=== PATIENT | male | born 1975 | race Caucasian/White ===

== ENCOUNTER → 2018-06-14 07:55 | Outpatient (CLI) | payer BC, SELFPAY ==
[2018-06-14 09:33] LABS: Add Manual Diff / Slide Review NO; Basophils Percent Auto 0.9 % (0-2); Eosinophils Percent Auto 3.3 % (2-4); Hematocrit 39.8 % (41-53); Hemoglobin 13.5 g/dL (13.5-17.5); Lymphocytes Percent Auto 23.3 % (25-40); Mean Corpuscular HGB Conc 33.8 % (30-36); Mean Corpuscular Hemoglobin 26.7 PG (26-34); Monocytes Percent Auto 9.2 % (3-14); Neutrophils Absolute Auto 4500 /uL (3000-5900); Neutrophils Percent Auto 63.3 % (50-75); Platelet Count 273 X10^3/uL (150-400); Red Blood Cell Count 5.04 X10^6/uL (4.5-5.9); Red Cell Distribution Width 12.5 % (11.6-14.8); White Blood Cell Count 7.1 X10^3/uL (4.5-11.0)
[2018-06-14 10:05] LABS: Alanine Aminotransferase 29 IU/L (21-72); Albumin 4.2 g/dL (3.5-5.0); Albumin Globulin Ratio 1.3 (1.0-2.8); Alkaline Phosphatase 92 U/L (38-126); Aspartate Aminotransferase 25 IU/L (17-59); BUN Creatinine Ratio 18.9 (6-22); Bilirubin Total 0.5 mg/dL (0.2-1.3); Blood Urea Nitrogen 17 mg/dL (9-20); Calcium 9.3 mg/dL (8.4-10.2); Carbon Dioxide 31 mmol/L (22-32); Chloride 101 mmol/L (98-107); Cholesterol 158 mg/dL (140-199); Estimated Glomerular Filt Rate > 60.0 mL/min (>60); Globulin 3.3 g/dL (1.7-4.1); Glucose 109 mg/dL (70-100); HDL Cholesterol 33 mg/dL (40-60); HEMOLYSIS < 15 (0-50); LDL Cholesterol Calculated 102 mg/dL (<100); Potassium 4.2 mmol/L (3.4-5.1); Sodium 140 mmol/L (137-145); Total Protein 7.5 g/dL (6.3-8.2); Triglycerides 114 mg/dL (35-150)
[2018-06-14 10:54] LABS: TSH w/ Reflex to FT4 1.55 uIU/mL (0.47-4.68)
== END ==
PROVIDERS: Family Provider Family Medicine; PCP Family Medicine; Visit Provider Family Medicine
DX: Z00.00 Encounter for general adult medical examination without abnormal findings (principal)
CPT/HCPCS: 36415; 80053; 80061; 84443; 85025

== ENCOUNTER 2019-01-12 15:05 | Emergency (ER) | payer BC, SELFPAY ==
[2019-01-12 15:10] VITALS: BP 164/91; PULSE 73; RESP 18; TEMP 37.2; O2SAT 96; BMI 46.2
[2019-01-12 15:24] VITALS: BP 164/91; PULSE 180; RESP 18; TEMP 37.2; O2SAT 96; BMI 46.2
[2019-01-12 15:54] LABS: Add Manual Diff / Slide Review NO; Basophils Absolute Auto 100 /uL (0-100); Basophils Percent Auto 1.2 % (0-2); Eosinophils Absolute Auto 200 /uL (0-450); Eosinophils Percent Auto 2.7 % (2-4); Hematocrit 45.6 % (41-53); Hemoglobin 14.9 g/dL (13.5-17.5); Lymphocytes Absolute Auto 2600 /uL (1100-4500); Lymphocytes Percent Auto 31.2 % (25-40); Mean Corpuscular HGB Conc 32.7 % (30-36); Mean Corpuscular Hemoglobin 25.6 PG (26-34); Mean Corpuscular Volume 78.3 fL (80-100); Monocytes Absolute Auto 800 /uL (0-900); Neutrophils Absolute Auto 4500 /uL (1500-7000); Neutrophils Percent Auto 54.9 % (50-75); Platelet Count 319 X10^3/uL (150-400); Red Blood Cell Count 5.82 X10^6/uL (4.5-5.9); Red Cell Distribution Width 13.3 % (11.6-14.8); White Blood Cell Count 8.3 X10^3/uL (4.5-11.0)
[2019-01-12 15:55] LABS: Alanine Aminotransferase 46 IU/L (21-72); Albumin 4.5 g/dL (3.5-5.0); Albumin Globulin Ratio 1.2 (1.0-2.8); Alkaline Phosphatase 99 U/L (38-126); Aspartate Aminotransferase 37 IU/L (17-59); BUN Creatinine Ratio 17.8 (6-22); Bilirubin Total 0.5 mg/dL (0.2-1.3); Blood Urea Nitrogen 16 mg/dL (9-20); Calcium 9.2 mg/dL (8.4-10.2); Carbon Dioxide 27 mmol/L (22-32); Chloride 102 mmol/L (98-107); Creatine Kinase 62 U/L (55-170); Estimated Glomerular Filt Rate > 60.0 mL/min (>60); Globulin 3.9 g/dL (1.7-4.1); Glucose 91 mg/dL (70-100); HEMOLYSIS 42 (0-50); Potassium 4.3 mmol/L (3.4-5.1); Sodium 140 mmol/L (137-145); Total Protein 8.4 g/dL (6.3-8.2)
[2019-01-12 16:00] VITALS: BP 142/92; PULSE 165
[2019-01-12] MEDS: dilTIAZem 5 MG/ML SDV 25 MG IV (16:00)
[2019-01-12] MEDS: SODIUM CHLORIDE 0.9% 1,000 ML 1000 ML IV (16:00)
[2019-01-12 16:06] LABS: Troponin I < 0.012 ng/mL (0.01-0.034)
[2019-01-12 16:36] LABS: Thyroid Stimulating Hormone 2.75 uIU/mL (0.47-4.68)
[2019-01-12 17:00] VITALS: BP 124/90; PULSE 89; RESP 20; O2SAT 97
[2019-01-12 17:29] VITALS: BP 124/90; PULSE 98; RESP 18; O2SAT 98
--- NOTE | 2019-01-17 13:49 | ED.ARRPALP ---
HPI - Arrhythmia/Palpitations General Chief Complaint: Arrhythmia/Palpitations Stated Complaint: feels off/short of breath/headache/hr 180 Time Seen by Provider: 01/12/19 15:15 Source: patient Mode of arrival: ambulatory Limitations: no limitations History of Present Illness HPI narrative: Patient comes to the emergency department complaining feeling dizzy and heart racing after a week upper respiratory symptoms. Patient states he had periods of fast heart rate for but never like this. Patient denies any chest pain or shortness. No nausea or vomiting. No fainting. No fevers. Patient is not known to have any cardiac issues. Related Data Home Medications Medication Instructions Recorded Confirmed aspirin 325 mg PO QDAY #0 07/28/16 07/15/18 Previous Rx's Medication Instructions Recorded diltiazem HCl [Cardizem CD] 180 mg PO DAILY #30 cap 01/12/19 Allergies Allergy/AdvReac Type Severity Reaction Status Date / Time Penicillins [PENICILLINS] Allergy Unknown Verified 01/12/19 15:22 Review of Systems Constitutional Denies chills, Denies fever(s), Denies lethargy and Denies weakness Eyes Denies change in vision, Denies eye discharge, Denies irritation and Denies loss of vision ENT Ears, Nose, Mouth, and Throat: Denies change in voice, Denies neck pain and Denies sore throat Cardiovascular Denies chest pain, Denies irregular heart rhythm, Reports lightheadedness, Reports palpitations, Denies dyspnea, Denies dyspnea on exertion and Denies orthopnea Respiratory Denies cough, Denies dyspnea, Denies dyspnea on exertion and Denies wheezing Gastrointestinal Gastrointestinal: Denies abdominal pain, Denies change in bowel habits, Denies diarrhea, Denies nausea and Denies vomiting Genitourinary Denies hematuria, Denies flank pain, Denies urinary incontinence and Denies urinary urgency Musculoskeletal Denies neck pain Integumentary/Breasts Denies pruritus, Denies erythema, Denies rash and Denies wounds Neurologic Denies confusion, Denies loss of vision and Denies weakness Psychiatric Denies anxiety, Denies confusion, Denies depression, Denies homicidal ideation and Denies suicidal ideation Endocrine Reports palpitations Hematologic/Lymphatic Denies easy bruising Allergic/Immunologic Denies wheezing [facility] Medical History Healthy adult (Acute) Surgical History No pertinent past surgical history (Acute) Social History Smoking Status: Never smoker Social History Smoking Status: Never smoker Exam Initial Vital Signs Initial Vital Signs: Vital Signs Temperature 99 F 01/12/19 15:10 Pulse Rate 73 01/12/19 15:10 Respiratory Rate 18 01/12/19 15:10 Blood Pressure 164/91 H 01/12/19 15:10 Pulse Oximetry 96 01/12/19 15:10 Const General: cooperative and well developed Nutritional Appearance: well nourished Orientation: alert, awake, oriented x3 and not confused HENMT Head: normocephalic and atraumatic Ears: external ears normal Nose: external nose normal and No nasal discharge Face and sinus: face symmetric and No dry mucous membranes Mouth: oral mucosae normal and moist mucous membranes Teeth and gingiva: dentition normal Eyes General: appearance normal, both eyes and all related structures Eyelids: eyelids normal Conjunctivae: conjunctivae normal Sclera: sclerae normal Pupils: PERRL EOM: EOM intact bilaterally Neck Neck: normal visual inspection, trachea midline, No lymphadenopathy, No midline deformity and No JVD Lymphatic: No lymphedema Chest Chest: normal inspection of the chest Resp Effort & Inspection: normal respiratory effort, able to speak in complete sentences, no respiratory distress and no use of accessory muscles Auscultation: clear to auscultation bilaterally, no rales, no rhonchi and no wheezes Cardio Rate: tachycardic Rhythm: abnormal rhythm ( Tachycardic) irregularly irregular Heart Sounds: no click, no gallops, no murmurs and no rubs Pulses: normal peripheral pulses GI Inspection: non-distended Palpation: soft, no hepatosplenomegaly, No guarding, No pulsatile mass and No tender Auscultation: normal bowel sounds Back/Spine/Pelvis Back: No CVA tenderness Cervical Spine: cervical ROM normal and No pain with cervical ROM Thoracic/Lumbar Spine: thoracic and lumbar spine normal to inspection Skin General: no rashes or lesions noted, No jaundice and No petechiae Neuro General: alert, oriented x3, gait normal and no focal motor deficits Speech: speech normal Extrem General: full ROM, no clubbing, cyanosis or edema, no pedal edema and no calf tenderness Psych Appearance: well kempt Mental Status: mental status grossly normal Attitude: cooperative Thought Content: normal and suicidality Judgment: judgment good Course Course Narrative: patient was placed on the quality assurance monitor body which showed a variable regular, rapid heart rate the 150s to 160s. IV line was placed and patient was given 25 mg diltiazem IV. He was worked up with an EKG and labs, which showed fibrillation with RVR, but otherwise unremarkable. The patient did respond very well to IV diltiazem, and converted to a normal sinus rhythm in the 70s to 80s. I did discuss with the patient that he will need to follow up with Cardiology regarding his new onset atrial fibrillation. They will determine whether he should be on any other medication for this and what the plan should be from here. If patient has another episode like this, or should he develop chest pain or shortness of breath or fainting, he should return to the emergency department immediately. We have discussed the usual indications for return otherwise. Orders Ordered: Discontinued Medications Diltiazem HCl (Cardizem) 25 mg IV NOW ONE Stop: 01/12/19 15:40 Last Admin: 01/12/19 16:00 Dose: 25 mg Sodium Chloride (Normal Saline 0.9%) 1,000 mls @ 1,000 mls/hr IV BOLUS ONE Stop: 01/12/19 16:38 Last Infusion: 01/12/19 17:26 Dose: 0 mls/hr Admin: 01/12/19 16:00 Dose: 1,000 mls/hr MDM - Arrhythmia/Palpitations Medical Records Attestation: I reviewed the patient's medical records. Lab Data Attestation: I reviewed the patient's lab results. Result diagrams: 01/12/19 15:30 01/12/19 15:30 Lab Results 01/12/19 01/12/19 01/12/19 Range/Units 15:30 15:30 15:30 WBC 8.3 (4.5-11.0) X10^3/uL RBC 5.82 (4.5-5.9) X10^6/uL Hgb 14.9 (13.5-17.5) g/dL Hct 45.6 (41-53) % MCV 78.3 L (80-100) fL MCH 25.6 L (26-34) PG MCHC 32.7 (30-36) % RDW 13.3 (11.6-14.8) % Plt Count 319 (150-400) X10^3/uL Neut % (Auto) 54.9 (50-75) % Lymph % (Auto) 31.2 (25-40) % [place] % (Auto) 10.0 (3-14) % Eos % (Auto) 2.7 (2-4) % Baso % (Auto) 1.2 (0-2) % Neut # (Auto) 4500 (8869-2170) /uL Lymph # (Auto) 2600 (4134-3246) /uL [place] # (Auto) 800 (0-900) /uL Eos # (Auto) 200 (0-450) /uL Baso # (Auto) 100 (0-100) /uL Sodium 140 (137-145) mmol/L Potassium 4.3 (3.4-5.1) mmol/L Chloride 102 (98-107) mmol/L Carbon Dioxide 27 (22-32) mmol/L BUN 16 (9-20) mg/dL Creatinine 0.90 (0.66-1.25) mg/dL Estimated GFR > 60.0 (>60) mL/min BUN/Creatinine Ratio 17.8 (6-22) Glucose 91 (70-100) mg/dL Calcium 9.2 (8.4-10.2) mg/dL Total Bilirubin 0.5 (0.2-1.3) mg/dL AST 37 (17-59) IU/L ALT 46 (21-72) IU/L Alkaline Phosphatase 99 (38-126) U/L Total Creatine Kinase 62 (55-170) U/L CK-MB (CK-2) TNP CK-MB (CK-2) Rel Index TNP Troponin I < 0.012 (0.01-0.034) ng/mL Total Protein 8.4 H (6.3-8.2) g/dL Albumin 4.5 (3.5-5.0) g/dL Globulin 3.9 (1.7-4.1) g/dL Albumin/Globulin Ratio 1.2 (1.0-2.8) TSH 2.75 (0.47-4.68) uIU/mL ECG Data Attestation: I personally reviewed and interpreted this ECG as follows: ( See below) Interpretation: 12 lead EKG performed January 12, 2018 at 3:15 p.m., as follows: Irregular ventricular rhythm with a rate of 163 beats per minute MA interval undetectable P-waves absent QRS duration 90 millisecond QTC interval 360 millisecond left axis deviation, borderline normal ST T waves interpretaton: atrial fibrillation with rapid ventricular response; left axis deviation; abnormal EKG as interpreted by ED MD. Discharge Plan Departure Patient Disposition: Home Clinical Impression: Atrial fibrillation, new onset Discharge Date/Time: 01/12/19 17:31 Interventions: ED Discharge Assessment Last Done: 01/12/19 17:29 Instructions: DI for Atrial Fibrillation Prescriptions: New diltiazem HCl [Cardizem CD] 180 mg capsule,extended release 24hr 180 mg PO DAILY Qty: 30 RF: 0 No Action aspirin 325 MG tablet,delayed release (DR/EC) 325 mg PO QDAY Qty: 0 RF: 0 Referrals: [facility] Cardiology [Provider Group] Sandra Vang MD [Primary Care Provider] -
--- NOTE | 2019-01-17 13:57 | ED_ITS ---
HPI - Arrhythmia/Palpitations General Chief Complaint: Arrhythmia/Palpitations Stated Complaint: feels off/short of breath/headache/hr 180 Time Seen by Provider: 01/12/19 15:15 Source: patient Mode of arrival: ambulatory Limitations: no limitations History of Present Illness HPI narrative: Patient comes to the emergency department complaining feeling dizzy and heart racing after a week upper respiratory symptoms. Patient states he had periods of fast heart rate for but never like this. Patient denies any chest pain or shortness. No nausea or vomiting. No fainting. No fevers. Patient is not known to have any cardiac issues. Related Data Home Medications Medication Instructions Recorded Confirmed aspirin 325 mg PO QDAY #0 07/28/16 07/15/18 Previous Rx's Medication Instructions Recorded diltiazem HCl [Cardizem CD] 180 mg PO DAILY #30 cap 01/12/19 Allergies Allergy/AdvReac Type Severity Reaction Status Date / Time Penicillins [PENICILLINS] Allergy Unknown Verified 01/12/19 15:22 Review of Systems Constitutional Denies chills, Denies fever(s), Denies lethargy and Denies weakness Eyes Denies change in vision, Denies eye discharge, Denies irritation and Denies loss of vision ENT Ears, Nose, Mouth, and Throat: Denies change in voice, Denies neck pain and Denies sore throat Cardiovascular Denies chest pain, Denies irregular heart rhythm, Reports lightheadedness, Reports palpitations, Denies dyspnea, Denies dyspnea on exertion and Denies orthopnea Respiratory Denies cough, Denies dyspnea, Denies dyspnea on exertion and Denies wheezing Gastrointestinal Gastrointestinal: Denies abdominal pain, Denies change in bowel habits, Denies diarrhea, Denies nausea and Denies vomiting Genitourinary Denies hematuria, Denies flank pain, Denies urinary incontinence and Denies urinary urgency Musculoskeletal Denies neck pain Integumentary/Breasts Denies pruritus, Denies erythema, Denies rash and Denies wounds Neurologic Denies confusion, Denies loss of vision and Denies weakness Psychiatric Denies anxiety, Denies confusion, Denies depression, Denies homicidal ideation and Denies suicidal ideation Endocrine Reports palpitations Hematologic/Lymphatic Denies easy bruising Allergic/Immunologic Denies wheezing [facility] Medical History Healthy adult (Acute) Surgical History No pertinent past surgical history (Acute) Social History Smoking Status: Never smoker Social History Smoking Status: Never smoker Exam Initial Vital Signs Initial Vital Signs: Vital Signs Temperature 99 F 01/12/19 15:10 Pulse Rate 73 01/12/19 15:10 Respiratory Rate 18 01/12/19 15:10 Blood Pressure 164/91 H 01/12/19 15:10 Pulse Oximetry 96 01/12/19 15:10 Const General: cooperative and well developed Nutritional Appearance: well nourished Orientation: alert, awake, oriented x3 and not confused HENMT Head: normocephalic and atraumatic Ears: external ears normal Nose: external nose normal and No nasal discharge Face and sinus: face symmetric and No dry mucous membranes Mouth: oral mucosae normal and moist mucous membranes Teeth and gingiva: dentition normal Eyes General: appearance normal, both eyes and all related structures Eyelids: eyelids normal Conjunctivae: conjunctivae normal Sclera: sclerae normal Pupils: PERRL EOM: EOM intact bilaterally Neck Neck: normal visual inspection, trachea midline, No lymphadenopathy, No midline deformity and No JVD Lymphatic: No lymphedema Chest Chest: normal inspection of the chest Resp Effort & Inspection: normal respiratory effort, able to speak in complete sentences, no respiratory distress and no use of accessory muscles Auscultation: clear to auscultation bilaterally, no rales, no rhonchi and no wheezes Cardio Rate: tachycardic Rhythm: abnormal rhythm ( Tachycardic) irregularly irregular Heart Sounds: no click, no gallops, no murmurs and no rubs Pulses: normal peripheral pulses GI Inspection: non-distended Palpation: soft, no hepatosplenomegaly, No guarding, No pulsatile mass and No tender Auscultation: normal bowel sounds Back/Spine/Pelvis Back: No CVA tenderness Cervical Spine: cervical ROM normal and No pain with cervical ROM Thoracic/Lumbar Spine: thoracic and lumbar spine normal to inspection Skin General: no rashes or lesions noted, No jaundice and No petechiae Neuro General: alert, oriented x3, gait normal and no focal motor deficits Speech: speech normal Extrem General: full ROM, no clubbing, cyanosis or edema, no pedal edema and no calf tenderness Psych Appearance: well kempt Mental Status: mental status grossly normal Attitude: cooperative Thought Content: normal and suicidality Judgment: judgment good Course Course Narrative: patient was placed on the security monitor which showed a variable regular, rapid heart rate the 150s to 160s. IV line was placed and patient was given 25 mg diltiazem IV. He was worked up with an EKG and labs, which showed fibrillation with RVR, but otherwise unremarkable. The patient did respond very well to IV diltiazem, and converted to a normal sinus rhythm in the 70s to 80s. I did discuss with the patient that he will need to follow up with Cardiology regarding his new onset atrial fibrillation. They will determine whether he should be on any other medication for this and what the plan should be from here. If patient has another episode like this, or should he develop chest pain or shortness of breath or fainting, he should return to the emergency department immediately. We have discussed the usual indications for return otherwise. Orders Ordered: Discontinued Medications Diltiazem HCl (Cardizem) 25 mg IV NOW ONE Stop: 01/12/19 15:40 Last Admin: 01/12/19 16:00 Dose: 25 mg Sodium Chloride (Normal Saline 0.9%) 1,000 mls @ 1,000 mls/hr IV BOLUS ONE Stop: 01/12/19 16:38 Last Infusion: 01/12/19 17:26 Dose: 0 mls/hr Admin: 01/12/19 16:00 Dose: 1,000 mls/hr MDM - Arrhythmia/Palpitations Medical Records Attestation: I reviewed the patient's medical records. Lab Data Attestation: I reviewed the patient's lab results. Result diagrams: 01/12/19 15:30 01/12/19 15:30 Lab Results 01/12/19 01/12/19 01/12/19 Range/Units 15:30 15:30 15:30 WBC 8.3 (4.5-11.0) X10^3/uL RBC 5.82 (4.5-5.9) X10^6/uL Hgb 14.9 (13.5-17.5) g/dL Hct 45.6 (41-53) % MCV 78.3 L (80-100) fL MCH 25.6 L (26-34) PG MCHC 32.7 (30-36) % RDW 13.3 (11.6-14.8) % Plt Count 319 (150-400) X10^3/uL Neut % (Auto) 54.9 (50-75) % Lymph % (Auto) 31.2 (25-40) % [place] % (Auto) 10.0 (3-14) % Eos % (Auto) 2.7 (2-4) % Baso % (Auto) 1.2 (0-2) % Neut # (Auto) 4500 (1907-7831) /uL Lymph # (Auto) 2600 (3719-4397) /uL [place] # (Auto) 800 (0-900) /uL Eos # (Auto) 200 (0-450) /uL Baso # (Auto) 100 (0-100) /uL Sodium 140 (137-145) mmol/L Potassium 4.3 (3.4-5.1) mmol/L Chloride 102 (98-107) mmol/L Carbon Dioxide 27 (22-32) mmol/L BUN 16 (9-20) mg/dL Creatinine 0.90 (0.66-1.25) mg/dL Estimated GFR > 60.0 (>60) mL/min BUN/Creatinine Ratio 17.8 (6-22) Glucose 91 (70-100) mg/dL Calcium 9.2 (8.4-10.2) mg/dL Total Bilirubin 0.5 (0.2-1.3) mg/dL AST 37 (17-59) IU/L ALT 46 (21-72) IU/L Alkaline Phosphatase 99 (38-126) U/L Total Creatine Kinase 62 (55-170) U/L CK-MB (CK-2) TNP CK-MB (CK-2) Rel Index TNP Troponin I < 0.012 (0.01-0.034) ng/mL Total Protein 8.4 H (6.3-8.2) g/dL Albumin 4.5 (3.5-5.0) g/dL Globulin 3.9 (1.7-4.1) g/dL Albumin/Globulin Ratio 1.2 (1.0-2.8) TSH 2.75 (0.47-4.68) uIU/mL ECG Data Attestation: I personally reviewed and interpreted this ECG as follows: ( See below) Interpretation: 12 lead EKG performed January 12, 2018 at 3:15 p.m., as follows: Irregular ventricular rhythm with a rate of 163 beats per minute IN interval undetectable P-waves absent QRS duration 90 millisecond QTC interval 360 millisecond left axis deviation, borderline normal ST T waves interpretaton: atrial fibrillation with rapid ventricular response; left axis deviation; abnormal EKG as interpreted by ED MD. Discharge Plan Departure Patient Disposition: Home Clinical Impression: Atrial fibrillation, new onset Discharge Date/Time: 01/12/19 17:31 Interventions: ED Discharge Assessment Last Done: 01/12/19 17:29 Instructions: DI for Atrial Fibrillation Prescriptions: New diltiazem HCl [Cardizem CD] 180 mg capsule,extended release 24hr 180 mg PO DAILY Qty: 30 RF: 0 No Action aspirin 325 MG tablet,delayed release (DR/EC) 325 mg PO QDAY Qty: 0 RF: 0 Referrals: [facility] Cardiology [Provider Group] Sandra Vang MD [Primary Care Provider] -
== END 2019-01-12 17:31 | disposition home or self-care (01) ==
PROVIDERS: Emergency Provider Emergency Medicine; Family Provider Family Medicine; PCP Family Medicine
DX: I48.91 Unspecified atrial fibrillation (principal)
CPT/HCPCS: 36591; 80053; 82550; 84443; 84484; 85025; 93005; 96361; 96374; 99283; 99284

== ENCOUNTER → 2019-01-24 12:51 | Outpatient (CLI) | payer BC, SELFPAY ==
--- NOTE | 2019-01-24 | DI.ECHO.S_ITS ---
[facility] +---------+ : : [address] [place] : : : : [id number] : : : : Phone: [phone]+ Echocardiogram Report + + :Name: VANESSA HAINES Study Date: 01/24/2019 Height: 74 in : :[facility] Weight: 376 lb : : Gender: Male BSA: 2.8 m2 : :: 1975 Age: 44 yrs BP: 128/84 mmHg: :Reason For Study: Atrial fibrillation, Chest Pain : :Ordering Physician: : :Sandra Vang Performed By: Obdulia Humphreys : + + Interpretation Summary Normal left ventricle size with ejection fraction 60-65%. Mildly dilated left atrium. No valvular abnormality. Mildly dilated aortic root, ascending aorta and aortic arch. Procedure: A two-dimensional transthoracic echocardiogram with color flow and Doppler was performed. The study quality was technically adequate. There is no prior echocardiogram noted for this patient. The patient was in normal sinus rhythm during the exam. Left Ventricle: There is normal left ventricular wall thickness. The left ventricle is normal in size. There is no ventricular septal defect visualized. The ejection fraction is estimated to be 60-65%. There are no obvious focal wall motion abnormalities noted but poor endocardial definition reduces the sensitivity for the detection of such. Diastolic parameters suggest probable normal left ventricular diastolic function and normal filling pressures. Right Ventricle: The right ventricle is normal in size and function. Atria: The left atrium is mildly dilated. Right atrial size is normal. There is no Doppler evidence for an interatrial shunt. Mitral Valve: The mitral valve is normal in structure and function. There is no mitral regurgitation noted. Aortic Valve: The aortic valve opens well. No aortic regurgitation is present. Tricuspid Valve: The tricuspid valve is normal in structure and function. There is a trace or physiologic amount of tricuspid regurgitation. The right ventricular systolic pressure is estimated to be at least 18 mmHg based on an estimated right atrial pressure of 3 mm Hg. Pulmonic Valve: The pulmonic valve is not well seen, but is grossly normal. Great Vessels: The aortic root is mildly dilated. The ascending aorta is mildly enlarged. The aortic arch is mildly enlarged. The IVC is of normal diameter and collapses greater than 50% with a sniff. This suggests a low right atrial pressure of 3 mm Hg. Pericardium/ Pleura There is no pericardial effusion. MMode/2D Measurements & Calculations LVIDd: 5.3 cm LVOT diam: 2.5 cm LVIDs: 3.5 cm Ao root diam: 4.5 cm FS: 33.4 % asc Aorta Diam: 3.8 cm EPSS: 0.20 cm Ao Arch Diam (Prox Trans): 3.4 cm IVSd: 0.93 cm LVPWd: 1.1 cm LV ritchie. diameter/BSA (cm/m^2): 1.9 LV sys. diameter/BSA (cm/m^2): 1.2 LA A2 area: 28.8 cm2 RA long axis: 5.2 cm LA A4 area: 29.4 cm2 RA area: 17.3 cm2 LA length (vol): 6.2 cm RA vol: 48.4 ml LA vol: 116.0 ml RA : 17.0 ml/m2 LA vol index: 40.8 ml/m2 IVC diam: 2.1 cm RVD1 (basal): 3.5 cm RVD2 (mid): 3.3 cm TAPSE: 2.7 cm Doppler Measurements & Calculations Ao V2 max: 156.8 cm/sec LVOT Max Roby: 111.1 cm/sec Ao V2 mean: 109.6 cm/sec LV V1 max P.9 mmHg Ao max P.8 mmHg LV V1 VTI: 21.6 cm Ao mean P.2 mmHg KEVIN(I,D): 3.6 cm2 Ao V2 VTI: 29.2 cm KEVIN(V,D): 3.4 cm2 sev ratio: 0.74 KEVIN indexed to BSA (cm^2/m^2): 1.3 MV E max roby: 73.3 cm/sec TR max roby: 195.8 cm/sec MV A max roby: 39.8 cm/sec TR max P.3 mmHg MV E/A: 1.8 PA V2 max: 79.3 cm/sec Med Peak E' Roby: 7.2 cm/sec PA V2 mean: 58.2 cm/sec E/E' med: 10.2 PA mean P.5 mmHg Lat Peak E' Roby: 12.5 cm/sec PA pr(Accel): 34.1 mmHg E/E' lat: 5.9 E/e' average: 8.0 MV dec time: 0.23 sec MV P1/2t: 67.1 msec MV P1/2t max roby: 73.3 cm/sec SV(LVOT): 105.1 ml MVA(P1/2t): 3.3 cm2 Electronically signed by: Stefany Beaulieu on Reading Physician:01/24/2019 02:20 PM
== END ==
PROVIDERS: Family Provider Family Medicine; PCP Family Medicine; Visit Provider Family Medicine
DX: I48.91 Unspecified atrial fibrillation (principal); R07.9 Chest pain, unspecified; I77.810 Thoracic aortic ectasia
CPT/HCPCS: 93306

== ENCOUNTER 2020-08-16 17:00 | Emergency (ER) | payer OTHER, SELFPAY ==
[2020-08-16 17:36] VITALS: BP 148/96; PULSE 114; RESP 18; TEMP 36.7; O2SAT 98; BMI 43.7
--- NOTE | 2020-08-16 18:32 | PC.NURSE ---
Patient reports mid line tenderness in t spine. Denies numbness and tingling in extremities. Ambulatory into ed and drove self to ED.
[2020-08-16 18:40] VITALS: BP 140/82; PULSE 88; RESP 18; O2SAT 99
--- NOTE | 2020-08-16 18:45 | ED.LOWEXIN ---
HPI - Extremity Injury (Lower) General Chief Complaint: Extremity Injury, Lower Stated Complaint: FALL RIGHT LEG INJURY Time Seen by Provider: 08/16/20 18:08 Source: patient Mode of arrival: Ambulatory Limitations: no limitations History of Present Illness HPI Narrative: 45-year-old male here for evaluation of injuries that he sustained earlier in the day. He states he was at work he was stepping in between 2 pieces of equipment and fell. Height was approximately 4 ft. He states he landed on his back. There was no loss of consciousness. He is not on anticoagulation. He went to an outside facility after the event happened. He states that he had x-rays of his lower back which he was told were unremarkable. He did have some bruising on the back of his right leg and was told that it was a bruise and was discharged home. He returns to this emergency department now because the bruising on the back of his right leg has worsened and he is also having left-sided rib pain. Has not tried anything for symptoms prior to arrival. He is also having some numbness of the skin over the bruising of his right leg. Related Data Home Medications Medication Instructions Recorded Confirmed aspirin 325 mg PO QDAY #0 07/28/16 07/15/18 Previous Rx's Medication Instructions Recorded diltiazem HCl [Cardizem CD] 180 mg PO DAILY #30 cap 01/12/19 Allergies Allergy/AdvReac Type Severity Reaction Status Date / Time Penicillins [PENICILLINS] Allergy Unknown Verified 08/16/20 17:45 Review of Systems Constitutional Constitutional: Denies frequent falls and Denies headache(s) ENT Ears, Nose, Mouth, and Throat: Denies headache(s) Cardiovascular Cardiovascular: Denies dyspnea Comments: Left-sided rib/chest wall pain Respiratory Respiratory: Denies dyspnea Gastrointestinal Gastrointestinal: Denies abdominal pain, Denies nausea and Denies vomiting Genitourinary Genitourinary: Denies dysuria Genitourinary: Denies dysuria Musculoskeletal Comments: Bruising on the back of his right leg Integumentary/Breasts Comments: Bruising on the back of the right leg Neurologic Neurologic: Denies frequent falls and Denies headache(s) Comments: Numbness over the bruise the back of the right leg Psychiatric Psychiatric: Denies anxiety Hematologic/Lymphatic Hematologic/Lymphatic: Denies easy bleeding and Denies easy bruising Allergic/Immunologic Allergic/Immunologic: Denies urticaria Patient History Medical History Healthy adult (Acute) Surgical History No pertinent past surgical history (Acute) Social History Smoking Status: Never smoker Smoking Status: Never smoker Substance Use Type: does not use Exam Initial Vital Signs Initial Vital Signs: Vital Signs Temperature 98.0 F 08/16/20 17:36 Pulse Rate 114 H 08/16/20 17:36 Respiratory Rate 18 08/16/20 17:36 Blood Pressure 148/96 H 08/16/20 17:36 Pulse Oximetry 98 08/16/20 17:36 Const General: cooperative, comfortable and well developed Limitations: mental status not altered HENMT Head: normal to inspection and normocephalic Eyes Pupils: PERRL Chest Chest: No crepitus and tenderness (Left-sided anterior axillary chest wall) Resp Effort & Inspection: normal respiratory effort Auscultation: clear to auscultation bilaterally Cardio Rate: tachycardic Rhythm: regular rhythm Pulses: radial pulses present GI Inspection: non-distended Palpation: soft Skin Other: Patient with a small abrasion on the posterior lateral aspect of the right hamstring. Also has significant bruising posterior aspect of the right thigh. Neuro Other: Numbness over the skin of the bruising of the right posterior thigh Extrem General: normal to inspection and capillary refill normal Other: Patient was able to flex and extend at the knee without difficulty with equal strength right compared to left Psych Appearance: grossly normal and well kempt Course Vital Signs Vital signs: Vital Signs - 8 hr 08/16/20 17:36 08/16/20 18:40 Temperature 98.0 F Pulse Rate 114 H 88 Respiratory Rate 18 18 Blood Pressure 148/96 H 140/82 Pulse Oximetry 98 99 MDM - Extremity Injury (Lower) MDM Narrative Medical decision making narrative: Patient has tenderness to palpation over the lateral chest wall. It is over several ribs on the side. There is no bruising over the area. His lungs were clear. Had a discussion with him regarding possible injury to the ribs to include fracture or bruising. I feel that there is unlikely any lung injury. We did discuss x-ray the patient would like to hold for now. Does have fairly significant bruising on the posterior aspect of his right hamstring. The abrasion in the area needs no intervention here in the ER. Had a long discussion with him regarding these injuries. We did discuss the possibility of a potential hamstring injury given his fall in the location of the bruising. I have low suspicion that he is completely tore his hamstring is he has no tenderness over the hamstring tendons and he can flex and extend his knee without difficulty and equal strength the left side. I feel we can hold on any x-rays. He is able to stand and walk. Had a discussion with him regarding the bruising. Informed that he could potentially a worsening bruising over next couple days. Feel we can hold on further workup for now. Patient expressed understanding agreement. Discharge Plan Departure Patient Disposition: Home Clinical Impression: Rib pain on left side, Hematoma of right lower leg Abrasion of leg, right Qualifiers: Encounter type: initial encounter Qualified Code(s): S80.811A - Abrasion, right lower leg, initial encounter Discharge Date/Time: 08/16/20 19:06 Activity Restrictions/Additional Instructions: There is a possibility that you have a partial tear of the right hamstring muscle. Time will tell whether not this is just a large hematoma or a muscle tear. You have no restrictions on your activities other than avoiding things that make your symptoms worse. Contact your primary provider for follow-up. Return to the emergency department for any new or worsening symptoms Prescriptions: No Action aspirin 325 MG tablet,delayed release (DR/EC) 325 mg PO QDAY Qty: 0 RF: 0 diltiazem HCl [Cardizem CD] 180 mg capsule,extended release 24hr 180 mg PO DAILY Qty: 30 RF: 0 Referrals: Sandra Vang MD [Primary Care Provider] -
== END 2020-08-16 19:06 | disposition home or self-care (01) ==
PROVIDERS: Emergency Provider Emergency Medicine; Family Provider Family Medicine; PCP Family Medicine
DX: R07.81 Pleurodynia (principal); S80.11XA Contusion of right lower leg, initial encounter; S80.811A Abrasion, right lower leg, initial encounter; W19.XXXA Unspecified fall, initial encounter
CPT/HCPCS: 99281

== ENCOUNTER → 2021-03-18 12:04 | Outpatient (CLI) | payer OTHER, SELFPAY ==
--- NOTE | 2021-03-18 12:06 | DI.US.S_ITS ---
PROCEDURE: US EXTREMITY NONVASC LOWER RT INDICATIONS: POST TRAUMA MASS, RT POST THIGH TECHNIQUE: Real-time scanning was performed of the right posterior thigh region, with image documentation. COMPARISON: None. FINDINGS: 3 cm deep to the skin surface there is a fluid pocket the measures 0.4 x 1.6 x 3.2 cm, consistent with a posttraumatic hematoma. IMPRESSION: Presumed posttraumatic hematoma measuring up to 3.2 cm at the posterior right mid thigh in this patient with pain after trauma. Please correlate clinically for resolution over time. If this abnormality does not resolve follow-up by contrast-enhanced MR scanning would be recommended. Dictated by: Mark Sampson M.D. on 03/18/2021 at 13:46 Approved by: Mark Sampson M.D. on 03/18/2021 at 13:48
== END ==
PROVIDERS: Family Provider Family Medicine; Referring Provider Specialist; Visit Provider Specialist
DX: R22.41 Localized swelling, mass and lump, right lower limb (principal)
CPT/HCPCS: 76882

== ENCOUNTER → 2021-03-25 15:33 | Outpatient (CLI) | payer OTHER, SELFPAY ==
--- NOTE | 2021-03-25 15:35 | DI.MRI.S_ITS ---
PROCEDURE: MR FEMUR RT WO CON INDICATIONS: persistent mass soft tissue right post thigh post trauma. TECHNIQUE: Noncontrast coronal and sagittal T1 spin echo and STIR; axial T1 spin echo and T2 fast spin echo with fat saturation through the right femur. COMPARISON: [facility], CR, XR FEMUR 2+ VIEWS RIGHT, 09/01/2020, 11:04. [facility], US, US EXTREMITY NONVASC LOWER RT, 03/18/2021, 12:20. FINDINGS: Image quality: Excellent. Bones: The visualized bone marrow demonstrates normal signal on all sequences. The overlying cortex appears intact. No fractures lines or intra-osseous lesions. Soft tissues: There is diffuse superficial fascial fluid along the posterior margin of the hamstring muscles. No definite sub fascial signal changes are seen. A discrete mass is identified. IMPRESSION: No discrete mass identified although the patient declined IV contrast enhanced pulse sequences. Diffuse superficial fascial fluid along the posterior thigh , adjacent to the hamstring muscles. This could reflect resolving hematoma or posttraumatic changes. Dictated by: Jaavd Ortiz M.D. on 03/25/2021 at 17:07 Approved by: Javad Ortiz M.D. on 03/25/2021 at 17:14
== END ==
PROVIDERS: Family Provider Family Medicine; Referring Provider Specialist; Visit Provider Specialist
DX: R22.41 Localized swelling, mass and lump, right lower limb (principal)
CPT/HCPCS: 73718

== ENCOUNTER 2022-06-21 09:46 | Emergency (ER) | payer OTHER, SELFPAY ==
[2022-06-21 10:18] VITALS: PULSE 73; O2SAT 96
[2022-06-21 10:26] VITALS: BP 136/83; PULSE 69; RESP 16; TEMP 37.2; O2SAT 96; BMI 50.0
[2022-06-21 10:30] VITALS: PULSE 70; O2SAT 95
[2022-06-21 10:37] LABS: Add Manual Diff / Slide Review NO; Basophils Absolute Auto 100 /uL (0-100); Basophils Percent Auto 0.5 % (0-2); Eosinophils Absolute Auto 0 /uL (0-450); Eosinophils Percent Auto 0.1 % (2-4); Hematocrit 39.1 % (41-53); Lymphocytes Absolute Auto 900 /uL (1100-4500); Lymphocytes Percent Auto 7.9 % (25-40); Mean Corpuscular HGB Conc 33.2 % (30-36); Mean Corpuscular Hemoglobin 24.9 PG (26-34); Mean Corpuscular Volume 75.1 fL (80-100); Monocytes Absolute Auto 600 /uL (0-900); Monocytes Percent Auto 5.5 % (3-14); Neutrophils Absolute Auto 9300 /uL (1500-7000); Platelet Count 284 X10^3/uL (150-400); Red Blood Cell Count 5.22 X10^6/uL (4.5-5.9); Red Cell Distribution Width 14.7 % (11.6-14.8); White Blood Cell Count 10.8 X10^3/uL (4.5-11.0)
[2022-06-21 10:39] LABS: INR 1.1 (0.9-1.3); Prothrombin Time 13.1 SECONDS (10.1-12.7)
[2022-06-21 10:41] LABS: PTT Partial Thromboplastin Tim 33 SECONDS (26-36)
[2022-06-21 10:50] LABS: Alanine Aminotransferase 24 IU/L (<50); Albumin 4.4 g/dL (3.5-5.0); Albumin Globulin Ratio 1.3 (1.0-2.8); Alkaline Phosphatase 94 U/L (38-126); Aspartate Aminotransferase 28 IU/L (17-59); Bilirubin Total 0.6 mg/dL (0.2-1.3); Blood Urea Nitrogen 21 mg/dL (9-20); Calcium 9.4 mg/dL (8.4-10.2); Carbon Dioxide 25 mmol/L (22-32); Chloride 102 mmol/L (98-107); Estimated Glomerular Filt Rate > 60 mL/min (>60); Globulin 3.5 g/dL (1.7-4.1); Glucose 160 mg/dL (70-100); HEMOLYSIS < 15 (0-50); Lipase 32 U/L (23-300); Potassium 4.6 mmol/L (3.4-5.1); Sodium 136 mmol/L (137-145); Total Protein 7.9 g/dL (6.3-8.2)
--- NOTE | 2022-06-21 10:50 | DI.CT.S_ITS ---
PROCEDURE: CT KIDNEY URETER BLADDER (KUB) INDICATIONS: right flank pain TECHNIQUE: Axial sections were acquired from the lung bases to the pubic symphysis. Coronal and sagittal reformats were performed. For radiation dose reduction, the following was used: automated exposure control, adjustment of mA and/or kV according to patient size. COMPARISON: None. FINDINGS: Image quality: Excellent. Lung bases: Unremarkable. Heart: No significant findings. URINARY: Right Kidney: Mild perinephric inflammation. Mild hydronephrosis. No intrarenal calculi. Right Ureter: Trace right hydroureter. Punctate calculus in the distal ureter within 1 cm of the ureterovesicular junction. Left Kidney: No stones or hydronephrosis. Left Ureter: No hydroureter. Bladder: Normal wall thickness. No stones. ABDOMEN: Liver: Normal size and attenuation. No mass. Gallbladder: Normal. Biliary ducts: Nondilated. Pancreas: Normal contours. Spleen: Normal size. Adrenal Glands: No nodules. Stomach and Bowel: Stomach contains ingested material. Small bowel is decompressed. Normal appendix present. Normal colon loops. Peritoneum: No free fluid or free air. Ventral Wall: No hernia. Abdominal Nodes: There are several minimally prominent mesenteric lymph nodes and trace haziness of the central small bowel mesentery, nonspecific. No discrete mass. No retroperitoneal adenopathy. Vessels: Aorta and inferior vena cava are normal in size. PELVIS: Pelvic Organs: Normal size prostate gland. Pelvic Nodes: Unremarkable. Miscellaneous: No inguinal hernias are seen. Bones: Prominent synovial herniation pit in the right femoral head neck region. Degenerative changes in the lumbar spine to a mild degree. IMPRESSION: 1. Punctate right distal ureteral calculus causing mild hydronephrosis and perinephric inflammation. 2. No other intrarenal calculi. Dictated by: Denisse De La Paz M.D. on 06/21/2022 at 11:30 Approved by: Denisse De La Paz M.D. on 06/21/2022 at 11:36
--- NOTE | 2022-06-21 10:51 | ED_ITS ---
HPI - Abdominal Pain General Chief Complaint: Abdominal Pain Stated Complaint: Abd pain- rt side, vomiting, fever Time Seen by Provider: 06/21/22 10:43 History of Present Illness HPI narrative: Patient is a 47-year-old male without past medical history presenting today with right-sided flank pain. He says it started sometime last night. With intense right-sided flank pain he felt sweaty and nauseous. Took a shower tried heating pad took an NSAID that he does not know what it is. Pain continue to get worse. Definitely waxes and wanes. Now that he is in the emergency department is seems to be radiating around to his abdomen. He denies any dark urine or hematuria. No chest pain shortness of breath or palpitations. No prior history of kidney stone. Related Data Previous Rx's Medication Instructions Recorded hydrocodone 5 mg-acetaminophen 325 1 tab PO Q6H PRN pain #10 tabs 06/21/22 mg tablet ondansetron 4 mg disintegrating 4 mg PO Q8H PRN nausea and 06/21/22 tablet vomiting #10 tabs Allergies Allergy/AdvReac Type Severity Reaction Status Date / Time Penicillins [PENICILLINS] Allergy Unknown throat Verified 09/20/21 14:53 selling and closing,this happened when he was a child Review of Systems Review of Systems Narrative: GENERAL: Denies chills, fatigue, malaise, fever, sweats, travel HEENT: Denies sinus pain, ear pain, sore throat, difficulty swallowing, neck pain RESPIRATORY: Denies dyspnea, cough, wheezing, hemoptysis, sputum. CARDIOVASCULAR: Denies chest pain, palpitations, orthopnea, edema GASTROINTESTINAL: Denies nausea, vomiting, abdominal pain, diarrhea, constipation, melena. : See HPI MUSCULOSKELETAL: Denies weakness, joint pain, or bony pain SKIN: No rash, no erythema, no pruritus NEUROLOGIC: Denies weakness, dizziness, headache, numbness, change in speech, confusion PSYCHIATRIC: No concerning psychosocial issues. 12 point review of systems is negative except for those stated above and HPI Patient History Medical History (Updated 06/21/22 @ 12:28 by Justine Zhou DO) Healthy adult Surgical History No pertinent past surgical history Social History (Reviewed 06/21/22 @ 10:52 by AMELIA Skinner marital status: unknown occupational status: employed Smoking Status: Never smoker alcohol intake: never substance use type: does not use Smoking Status: Never smoker Substance Use Type: does not use Exam Initial Vital Signs Initial Vital Signs: Vital Signs Pulse Rate 73 06/21/22 10:18 Pulse Oximetry 96 06/21/22 10:18 GENERAL: Alert 47-year-old male only uncomfortable HEENT: Head atraumatic,EOMI, pupils reactive, face symmetric, moist mucous membranes CARDIOVASCULAR: Regular rate and rhythm without murmurs, rubs or gallops. RESPIRATORY: Breath sounds equal bilaterally, no wheezes rales or rhonchi. ABDOMEN: Soft, minimal right lower quadrant tenderness no guarding no rebound no right upper quadrant pain : Mild right CVA tenderness EXTREMITIES: Normal range of motion, no clubbing or edema. Neurovascularly intact NEUROLOGICAL: Alert and oriented x4.Normal gait and speech SKIN: Warm, dry, no laceration, no petechiae, no rashes or lesions. Course Orders Ordered: ED Orders 06/21/22 12:26 Urine Culture Stat Urine Microscopic Stat Discontinued Medications Ondansetron HCl (Ondansetron 4 Mg/2 Ml Inj) 4 mg IV NOW ONE Stop: 06/21/22 10:54 Last Admin: 06/21/22 11:01 Dose: 4 mg Documented By: COLEEN Vital Signs Vital signs: Vital Signs - 8 hr 06/21/22 10:26 06/21/22 10:18 06/21/22 10:30 Temperature 98.9 F Pulse Rate 69 73 70 Respiratory Rate 16 Blood Pressure 136/83 Pulse Oximetry 96 96 95 Oxygen Delivery Method Room Air MDM - Abdominal Pain Lab Data Result diagrams: 06/21/22 10:18 06/21/22 10:18 Labs: Lab Results 06/21/22 06/21/22 06/21/22 Range/Units 10:18 10:18 10:18 WBC 10.8 (4.5-11.0) X10^3/uL RBC 5.22 (4.5-5.9) X10^6/uL Hgb 13.0 L (13.5-17.5) g/dL Hct 39.1 L (41-53) % MCV 75.1 L (80-100) fL MCH 24.9 L (26-34) PG MCHC 33.2 (30-36) % RDW 14.7 (11.6-14.8) % Plt Count 284 (150-400) X10^3/uL Neut % (Auto) 86.0 H (50-75) % Lymph % (Auto) 7.9 L (25-40) % Anderson % (Auto) 5.5 (3-14) % Eos % (Auto) 0.1 L (2-4) % Baso % (Auto) 0.5 (0-2) % Neut # (Auto) 9300 H (4749-3189) /uL Lymph # (Auto) 900 L (0269-8177) /uL Anderson # (Auto) 600 (0-900) /uL Eos # (Auto) 0 (0-450) /uL Baso # (Auto) 100 (0-100) /uL PT 13.1 H (10.1-12.7) SECONDS INR 1.1 (0.9-1.3) APTT 33 (26-36) SECONDS Sodium 136 L (137-145) mmol/L Potassium 4.6 (3.4-5.1) mmol/L Chloride 102 (98-107) mmol/L Carbon Dioxide 25 (22-32) mmol/L BUN 21 H (9-20) mg/dL Creatinine 1.31 H (0.66-1.25) mg/dL Estimated GFR > 60 (>60) mL/min BUN/Creatinine Ratio 16.0 (6-22) Glucose 160 H (70-100) mg/dL Calcium 9.4 (8.4-10.2) mg/dL Total Bilirubin 0.6 (0.2-1.3) mg/dL AST 28 (17-59) IU/L ALT 24 (<50) IU/L Alkaline Phosphatase 94 (38-126) U/L Total Protein 7.9 (6.3-8.2) g/dL Albumin 4.4 (3.5-5.0) g/dL Globulin 3.5 (1.7-4.1) g/dL Albumin/Globulin Ratio 1.3 (1.0-2.8) Lipase 32 (23-300) U/L Urine RBC (0-5/HPF) Urine WBC (0-5/HPF) Ur Squamous Epith Cells (0-5/HPF) Urine Bacteria (None) Ur Culture Indicated? 06/21/22 Range/Units 12:26 WBC (4.5-11.0) X10^3/uL RBC (4.5-5.9) X10^6/uL Hgb (13.5-17.5) g/dL Hct (41-53) % MCV (80-100) fL MCH (26-34) PG MCHC (30-36) % RDW (11.6-14.8) % Plt Count (150-400) X10^3/uL Neut % (Auto) (50-75) % Lymph % (Auto) (25-40) % Anderson % (Auto) (3-14) % Eos % (Auto) (2-4) % Baso % (Auto) (0-2) % Neut # (Auto) (2090-5804) /uL Lymph # (Auto) (9424-7286) /uL Anderson # (Auto) (0-900) /uL Eos # (Auto) (0-450) /uL Baso # (Auto) (0-100) /uL PT (10.1-12.7) SECONDS INR (0.9-1.3) APTT (26-36) SECONDS Sodium (137-145) mmol/L Potassium (3.4-5.1) mmol/L Chloride (98-107) mmol/L Carbon Dioxide (22-32) mmol/L BUN (9-20) mg/dL Creatinine (0.66-1.25) mg/dL Estimated GFR (>60) mL/min BUN/Creatinine Ratio (6-22) Glucose (70-100) mg/dL Calcium (8.4-10.2) mg/dL Total Bilirubin (0.2-1.3) mg/dL AST (17-59) IU/L ALT (<50) IU/L Alkaline Phosphatase (38-126) U/L Total Protein (6.3-8.2) g/dL Albumin (3.5-5.0) g/dL Globulin (1.7-4.1) g/dL Albumin/Globulin Ratio (1.0-2.8) Lipase (23-300) U/L Urine RBC 0-1/hpf (0-5/HPF) Urine WBC 0-1/hpf (0-5/HPF) Ur Squamous Epith Cells None seen (0-5/HPF) Urine Bacteria None seen (None) Ur Culture Indicated? [place] Point of care testing: Urine Dip Bedside Urine Glucose Negative Bedside Urine Bilirubin - Negative Bedside Urine Ketone - Negative Urine Specific [place] 1.020 Bedside Urine Occult Blood - Negative Bedside Urine pH 7.5 Bedside Urine Protein +/- 15 Bedside Urine Urobilinogen - Negative Bedside Urine Nitrite - Negative Bedside Urine Leukocytes - Negative Esterase Imaging Data CT scan - abdomen/pelvis: Radiologist's Impression: [place] [id number] [place] Scan Report Signed Patient: Nabil Vilchis MR#: [id number] : 1975 Acct:[id number] Age/Sex: 47 / M Date of Service: 06/21/22 Loc: ED Accession Number: [id number] ?? Procedure: CT kidney ureter bladder (KUB) Ordering Provider: Justine Zhou D.O. PROCEDURE:? CT KIDNEY URETER BLADDER (KUB) ? INDICATIONS:? right flank pain ? TECHNIQUE:? Axial sections were acquired from the lung bases to the pubic symphysis.? Coronal and sagittal reformats were performed.? For radiation dose reduction, the following was used: ?automated exposure control, adjustment of mA and/or kV according to patient size.? ? COMPARISON:? None. ? FINDINGS:? Image quality:? Excellent.? ? Lung bases:? Unremarkable.? ? Heart:? No significant findings. ? URINARY: Right Kidney:? Mild perinephric inflammation.? Mild hydronephrosis.? No intrarenal calculi.? Right Ureter:? Trace right hydroureter.? Punctate calculus in the distal ureter within 1 cm of the ureterovesicular junction. ? Left Kidney: ? No stones or hydronephrosis. Left Ureter:? No hydroureter.? ? Bladder:? Normal wall thickness. No stones. ? ? ? ABDOMEN: Liver:? Normal size and attenuation.? No mass. Gallbladder:? Normal. Biliary ducts:? Nondilated. Pancreas:? Normal contours. Spleen:? Normal size. Adrenal Glands:? No nodules. ? Stomach and Bowel:? Stomach contains ingested material.? Small bowel is decompressed.? Normal appendix present.? Normal colon loops. Peritoneum:? No free fluid or free air. ? Ventral Wall: ? No hernia.? Abdominal Nodes:? There are several minimally prominent mesenteric lymph nodes and trace haziness of the central small bowel mesentery, nonspecific.? No discrete mass.? No retroperitoneal adenopathy. Vessels:? Aorta and inferior vena cava are normal in size.? ? PELVIS: Pelvic Organs:? Normal size prostate gland. Pelvic Nodes: Unremarkable. Miscellaneous: No inguinal hernias are seen. ? ? ? Bones:? Prominent synovial herniation pit in the right femoral head neck region.? Degenerative changes in the lumbar spine to a mild degree. ? IMPRESSION:? ? 1. Punctate right distal ureteral calculus causing mild hydronephrosis and perinephric inflammation. ? 2. No other intrarenal calculi.? Dictated by: Denisse De La Paz M.D. on 06/21/2022 at 11:30 ? [facility] Narrative Medical decision making narrative: The patient is found to have a punctate ureteral stone on the right side likely causing his pain. Blood work is overall reassuring kidney function is within normal limits there is no sign of infection. He has not really needed anything for pain in the ED. At this time supportive care and home management only. Discharge Plan Departure Patient Disposition: Home Clinical Impression: Kidney stone Instructions: DI for Kidney Stones Activity Restrictions/Additional Instructions: *You have been diagnosed with kidney stone *What to do: You have a kidney stone on the right side I anticipate that he passes in the next 24 hours *Continue to take medications as directed--> SENT TO [facility] Motrin 800 mg every 8 hours if needed for csbi-[id number] pain Zofran 4 mg every 8 hours if needed for nausea or vomiting Hydrocodone 1 tablet every 6 hours only if needed for severe pain *Follow up with your primary care provider in 2-3 days or call [phone] *Return to ER if you should have increasing pain persistent vomiting or any new, worsening or concerning symptoms CONTROLLED SUBSTANCE DISCHARGE (Narcotoic/benzodiazepine/Flexeril/Phenergan) 1. You have been prescribed narcotic medications, it does have acetaminophen/Tylenol/paracetamol in it, DO NOT TAKE MORE THAN 4,00mg in 24 hours of Tylenol. TRAMADOL DOES NOT CONTAIN TYLENOL 2. Please understand that we cannot provide further refills of narcotics, benzodiazepines or controlled substances through the ED and her pain management will need to be through your provider. 3. While on these medications you cannot drive or operate heavy machinery. 4. You cannot sign legal documents or perform any duties such as this. 5. As long as you're taking opiate pain medications he should also be taking a stool softener such as Colace, Dulcolax, MiraLAX or prune juice, to help avoid constipation. Prescriptions: New hydrocodone-acetaminophen 5-325 mg tablet 1 tab PO Q6H PRN (Reason: pain) Qty: 10 0RF ondansetron 4 mg tablet,disintegrating 4 mg PO Q8H PRN (Reason: nausea and vomiting) Qty: 10 0RF Visit Report Forms: Patient Portal/API
[2022-06-21] MEDS: ONDANSETRON 4 MG/2 ML INJ IV (11:01)
[2022-06-21 12:41] VITALS: BP 140/78; PULSE 77; RESP 16; O2SAT 97
[2022-06-21 13:02] LABS: Bacteria Urine None Seen; RBC Urine 0-1/HPF (0-5/HPF); Squamous Epithelial Cell Urine None Seen (0-5/HPF); WBC Urine 0-1/HPF (0-5/HPF)
== END 2022-06-21 12:42 | disposition home or self-care (01) ==
PROVIDERS: Emergency Provider Emergency Medicine; Family Provider Family Medicine
DX: N20.0 Calculus of kidney (principal)
CPT/HCPCS: 36415; 74176; 80053; 81003; 81015; 83690; 85025; 85610; 85730; 87086; 99284; J2405

== ENCOUNTER 2023-11-13 21:42 | Emergency (ER) | payer OTHER, SELFPAY ==
[2023-11-13 21:46] VITALS: BP 158/94; PULSE 89; RESP 18; TEMP 37; O2SAT 96; BMI 48.1
--- NOTE | 2023-11-13 22:27 | ED_ITS ---
HPI - Anxiety General Chief Complaint: Anxiety Stated Complaint: not feeling good Time Seen by Provider: 11/13/23 21:53 Source: patient Mode of arrival: Ambulatory History of Present Illness HPI narrative: Patient is a 48-year-old male. He arrives the emergency department with fairly vague complaints. He states that earlier today he was generally did not feel very well. He stated that he felt like there was some tingling and ?fluttering? in his fingers. No chest pain. Potentially some palpitations but he states that it was more in his arms in his fingers. He did take an aspirin. He then had lunch. He did not feel somewhat better but then symptoms happened again as the day went on. He currently is asymptomatic. He states he does have a history of anxiety and now he is feeling somewhat anxious about his symptoms and wanted to get checked out. Does have a history of sleep apnea. Related Data Previous Rx's Medication Instructions Recorded hydrocodone 5 mg-acetaminophen 325 1 tab PO Q6H PRN pain #10 tabs 06/21/22 mg tablet ondansetron 4 mg disintegrating 4 mg PO Q8H PRN nausea and 06/21/22 tablet vomiting #10 tabs Allergies Allergy/AdvReac Type Severity Reaction Status Date / Time Penicillins [PENICILLINS] Allergy Unknown throat Verified 09/20/21 14:53 selling and closing,this happened when he was a child Review of Systems Constitutional Constitutional: Reports system reviewed and no additional complaints, except as documented Cardiovascular Cardiovascular: Reports system reviewed and no additional complaints, except as documented Respiratory Respiratory: Reports system reviewed and no additional complaints, except as documented Gastrointestinal Gastrointestinal: Reports system reviewed and no additional complaints, except as documented Genitourinary Genitourinary: Reports system reviewed and no additional complaints, except as documented Neurologic Neurologic: Reports system reviewed and no additional complaints, except as documented Hematologic/Lymphatic On Anticoagulants: No Patient History Medical History Healthy adult Surgical History No pertinent past surgical history Social History marital status: unknown occupational status: employed Smoking Status: Never smoker alcohol intake: never substance use type: does not use Smoking Status: Never smoker Substance Use Type: does not use Exam Initial Vital Signs Initial Vital Signs: Vital Signs Temperature 98.6 F 11/13/23 21:46 Pulse Rate 89 11/13/23 21:46 Respiratory Rate 18 11/13/23 21:46 Blood Pressure 158/94 H 11/13/23 21:46 Pulse Oximetry 96 11/13/23 21:46 Oxygen Delivery Method Room Air 11/13/23 21:46 HENMT Head: normal to inspection and normocephalic Resp Effort & Inspection: normal respiratory effort Auscultation: clear to auscultation bilaterally Cardio Rate: regular rate Rhythm: regular rhythm GI Inspection: normal to inspection Skin General: no rashes or lesions noted Neuro General: patient alert, patient awake and moves all extremities Extrem General: normal to inspection Course Orders Ordered: ED Orders 11/13/23 21:53 EKG-12 Lead Stat 11/13/23 22:30 Basic Metabolic Panel Stat Complete Blood Count AUTO DIFF Stat Vital Signs Vital signs: Vital Signs - 8 hr 11/13/23 21:46 Temperature 98.6 F Pulse Rate 89 Respiratory Rate 18 Blood Pressure 158/94 H Pulse Oximetry 96 Oxygen Delivery Method Room Air MDM - Anxiety Lab Data Attestation: I reviewed the patient's lab results. 11/13/23 22:30 11/13/23 22:30 Labs: Lab Results 11/13/23 Range/Units 22:30 WBC 9.4 (4.5-11.0) X10^3/uL RBC 5.25 (4.5-5.9) X10^6/uL Hgb 12.6 L (13.5-17.5) g/dL Hct 38.4 L (41-53) % MCV 73.1 L (80-100) fL MCH 23.9 L (26-34) PG MCHC 32.7 (30-36) % RDW 15.8 H (11.6-14.8) % Plt Count 317 (150-400) X10^3/uL Neut % (Auto) 64.2 (50-75) % Lymph % (Auto) 24.1 L (25-40) % [place] % (Auto) 8.0 (3-14) % Eos % (Auto) 2.7 (2-4) % Baso % (Auto) 1.0 (0-2) % Neut # (Auto) 6000 (7060-7378) /uL Lymph # (Auto) 2300 (4529-3742) /uL [place] # (Auto) 800 (0-900) /uL Eos # (Auto) 300 (0-450) /uL Baso # (Auto) 100 (0-100) /uL Sodium 136 L (137-145) mmol/L Potassium 3.9 (3.4-5.1) mmol/L Chloride 100 (98-107) mmol/L Carbon Dioxide 27 (22-32) mmol/L BUN 19 (9-20) mg/dL Creatinine 0.90 (0.66-1.25) mg/dL Estimated GFR > 60 (>60) mL/min BUN/Creatinine Ratio 21.1 (6-22) Glucose 114 H (70-100) mg/dL Calcium 9.8 (8.4-10.2) mg/dL ECG Data Attestation: I personally reviewed and interpreted this ECG as follows: Interpretation: Sinus rhythm Ventricular rate 91 Left axis deviation Normal QRS Normal QTC No ST T wave changes MDM Narrative Medical decision making narrative: Patient now is asymptomatic. EKG is unremarkable. Labs unremarkable. Exam is unremarkable. No indication for radiologic studies. We discussed that his EKG looks normal today but if he did have some sort of abnormal rhythm earlier today that may only be able to be identified further with a Holter monitor. He does not have a primary doctor. He was given phone number that he can contact to help establish this. Patient is safe for discharge home. Will hold on further workup for now. He was given return precautions. He expressed understanding and agreement. Discharge Plan Departure Patient Disposition: Home Clinical Impression: Feared complaint without diagnosis Activity Restrictions/Additional Instructions: Your workup here in the emergency department is very reassuring. Your EKG is unremarkable. Your labs are unremarkable. I do recommend that you make contact with the primary care doctor. You can call [phone] to help with this process. No restrictions on your activity. Return to the emergency department for new symptoms Prescriptions: No Action hydrocodone-acetaminophen 5-325 mg tablet 1 tab PO Q6H PRN (Reason: pain) Qty: 10 0RF ondansetron 4 mg tablet,disintegrating 4 mg PO Q8H PRN (Reason: nausea and vomiting) Qty: 10 0RF Stand Alone Forms: Patient Portal/API
[2023-11-13 22:42] LABS: Add Manual Diff / Slide Review NO; Basophils Absolute Auto 100 /uL (0-100); Eosinophils Absolute Auto 300 /uL (0-450); Eosinophils Percent Auto 2.7 % (2-4); Hematocrit 38.4 % (41-53); Hemoglobin 12.6 g/dL (13.5-17.5); Lymphocytes Absolute Auto 2300 /uL (1100-4500); Lymphocytes Percent Auto 24.1 % (25-40); Mean Corpuscular HGB Conc 32.7 % (30-36); Mean Corpuscular Hemoglobin 23.9 PG (26-34); Mean Corpuscular Volume 73.1 fL (80-100); Monocytes Absolute Auto 800 /uL (0-900); Neutrophils Absolute Auto 6000 /uL (1500-7000); Neutrophils Percent Auto 64.2 % (50-75); Platelet Count 317 X10^3/uL (150-400); Red Blood Cell Count 5.25 X10^6/uL (4.5-5.9); Red Cell Distribution Width 15.8 % (11.6-14.8); White Blood Cell Count 9.4 X10^3/uL (4.5-11.0)
[2023-11-13 22:55] LABS: BUN Creatinine Ratio 21.1 (6-22); Blood Urea Nitrogen 19 mg/dL (9-20); Calcium 9.8 mg/dL (8.4-10.2); Carbon Dioxide 27 mmol/L (22-32); Chloride 100 mmol/L (98-107); Estimated Glomerular Filt Rate > 60 mL/min (>60); Glucose 114 mg/dL (70-100); HEMOLYSIS < 15 (0-50); Potassium 3.9 mmol/L (3.4-5.1); Sodium 136 mmol/L (137-145)
[2023-11-13 23:12] VITALS: BP 148/94; PULSE 72; RESP 18; O2SAT 94
== END 2023-11-13 23:14 | disposition home or self-care (01) ==
PROVIDERS: Emergency Provider Emergency Medicine; Family Provider Family Medicine
DX: F41.9 Anxiety disorder, unspecified (principal); R07.9 Chest pain, unspecified
CPT/HCPCS: 36415; 80048; 85025; 93005; 93010; 99281; 99284